=== PATIENT | female | born 1955 | race Caucasian/White ===

== ENCOUNTER 2021-02-10 16:03 | Emergency (ER) | payer MEDICARE ==
[~2021-02-10] VITALS: Ht 170.2 cm; Wt 99.3 kg
[2021-02-10] MEDS ORDERED: MORPHINE SULFATE 4 MG/ML SYRINGE IVP ONE (16:30)
[2021-02-10] MEDS ORDERED: PROPOFOL 1000 MG/ISO-OSM 100 ML IV PRN (16:45)
[2021-02-10 17:48] VITALS: BP 112/72
== END 2021-02-10 18:03 | disposition home or self-care (01) ==
LOC: EMS 16:03
DX: S73.005A Unspecified dislocation of left hip, initial encounter (principal); F32.9 Major depressive disorder, single episode, unspecified; I10 Essential (primary) hypertension; X58.XXXA Exposure to other specified factors, initial encounter; Y93.89 Activity, other specified; Y92.89 Other specified places as the place of occurrence of the external cause; Y99.8 Other external cause status
CPT/HCPCS: 27250; 73503; 99152; 99153; 99285; J2270